=== PATIENT | female | born 1950 | race Caucasian/White ===

== ENCOUNTER 2017-12-17 10:39 | Inpatient (IN) | payer OTHER ==
--- NOTE | 2017-12-17 11:06 | PDOC ---
History of Present Illness - General Chief Complaint: Injury Stated Complaint: FALL Time Seen by Provider: 12/17/17 11:02 - History of Present Illness Initial Comments: 12/17/17 11:05 67 yo F with h/o HLD, depression, Alzheimer dementia, CAD s/p stent placement x 3 ( 2009), A-fib ( not on AC), LLE ATK amputation / PVD (07/2017 at [facility]), RLE bypass graft, Lung mass 07/2017 (non biopsied), BIBA s/p fall. Per patient and patient she was at home ( hotel) in bed and rolled between bed and wall/dresser. Patient states that he was downstairs getting food in lobby for 20 minutes and when he was found patient, she was wedged in between bed, with complaint of head trauma. Denies LOC, head laceration, neck pain. Patient does not ambulate. Denies F/C, RUIZ,vision change, orthopnea, PND, leg swelling/pain, N/V, CP, SOB, abdominal pain, diarrhea, constipation, urinary complaints, weakness, lightheadedness, sensory changes. PMHx: as noted above. Dr. Mancini at [facility] performed ATK amputation. ROS: as noted above SHx: Tobacco cessation. Distant smoking history. Patient wheelchair/bed bound. Denies Etoh, IVDA. Meds: Metoprolol, Lexapro, ASA, Past History - Past Medical History Allergies/Adverse Reactions: Allergies Allergy/AdvReac Type Severity Reaction Status Date / Time No Known Allergies Allergy Verified 12/17/17 11:14 Home Medications: Ambulatory Orders Alprazolam 0.5 mg PO DAILY 12/17/17 Atorvastatin Ca [Lipitor] 40 mg PO HS 12/17/17 Collagenase Clostridium Hist. [Santyl] 15 gm TP DAILY 12/17/17 Escitalopram Oxalate [Lexapro -] 10 mg PO DAILY 12/17/17 Folic Acid 1 mg PO DAILY 12/17/17 Metoprolol Succinate 25 mg PO DAILY 12/17/17 Nystatin Powder [Nystop Topical Powder -] 15 gm TP BID 12/17/17 Review of Systems - Review of Systems Comments:: 12/17/17 11:05 GENERAL/CONSTITUTIONAL: No fever or chills. No weakness. HEAD, EYES, EARS, NOSE AND THROAT: Intermittent ear pain. No change in vision. No discharge. No sore throat. CARDIOVASCULAR: No chest pain or shortness of breath RESPIRATORY: No cough, wheezing, or hemoptysis. GASTROINTESTINAL: No nausea, vomiting, diarrhea or constipation. GENITOURINARY: No dysuria, frequency, or change in urination. MUSCULOSKELETAL: No joint or muscle swelling or pain. No neck or back pain. SKIN: No rash NEUROLOGIC: No headache, vertigo, loss of consciousness, or change in strength/ sensation. ENDOCRINE: No increased thirst. No abnormal weight change HEMATOLOGIC/LYMPHATIC: No anemia, easy bleeding, or history of blood clots. ALLERGIC/IMMUNOLOGIC: No hives or skin allergy. *Physical Exam - Physical Exam Comments: 12/17/17 11:05 GENERAL: Awake, alert, and fully oriented, in no acute distress HEAD: No signs of trauma, normocephalic, atraumatic EYES: PERRLA, EOMI, sclera anicteric, conjunctiva clear ENT: Auricles normal inspection, hearing grossly normal, nares patent, oropharynx clear without exudates. Moist mucosa NECK: Normal ROM, supple, no lymphadenopathy, JVD, or masses LUNGS: No distress, speaks full sentences, clear to auscultation bilaterally HEART: Regular rate and rhythm, normal S1 and S2, no murmurs, rubs or gallops, peripheral pulses normal and equal bilaterally. ABDOMEN: Soft, nontender, normoactive bowel sounds. No guarding, no rebound. No masses EXTREMITIES : Normal inspection, Normal range of motion, no edema. No clubbing or cyanosis. NEUROLOGICAL: Cranial nerves II through XII grossly intact. Normal speech, no focal sensorimotor deficits SKIN: Warm, Dry, normal turgor, no rashes or lesions noted ED Treatment Course - LABORATORY CBC & Chemistry Diagram: 12/17/17 12:00 12/17/17 12:00 Medical Decision Making - Medical Decision Making 12/17/17 12:39 67 yo F with h/o HLD, depression, CAD s/p [facility] 3 ( [facility] ), A-fib ( not on AC), RLE ATK amputation 2/2 PVD (07/2017 at [facility]) , RLE bypass graft, Lung mass 07/2017 (non biopsied), BIBA s/p fall and roll between bed and wall and closed head injury. VSS, AF, A&Ox3. NAD. ED Course: CBC, CMP, Cardiac Profile, PT/INR EKG, CXR 12/17/17 13:50 CXR: Crowding of pulm vessels vs. left parahilar infiltrate. CBC, CMP: Unremarkable UA: Neg Patient stable for d/c with return precautions. 12/17/17 14:16 CTH: Dilated lateral and third ventricles. Dr. Sanford: patient will benefit from shunt. 12/17/17 15:04 Patient admitted to med/surg. Dr. stephen *DC/Admit/Observation/Transfer Diagnosis at time of Disposition: NPH (normal pressure hydrocephalus) Closed head injury Qualifiers: Encounter type: initial encounter Qualified Code(s): S09.90XA - Unspecified injury of head, initial encounter Fall Qualifiers: Encounter type: initial encounter Qualified Code(s): W19.XXXA - Unspecified fall, initial encounter - Discharge Dispostion Disposition: HOME Condition at time of disposition: Stable Decision to Admit order: Yes - Referrals Referrals: Kali Cartagena [Primary Care Provider] - - Patient Instructions Printed Discharge Instructions: How to Prevent Falls, DI for Closed Head Injury Additional Instructions: Please return to the emergency department with any new or worsening symptoms or concerns. Please follow up with your primary care physician within 72 hours. - Post Discharge Activity - Attestations Physician Attestion: 12/17/17 11:06 I attest to the information provided in this note.
[2017-12-17 11:09] VITALS: BMI 27.4
[2017-12-17] MEDS ORDERED: ACETAMINOPHEN 500 MG TABLET (FP) PO ONE (12:04)
[2017-12-17 12:05] LABS: BASO % 1.1 % (0-2.0); EOS % 2.2 % (0-4.5); HEMATOCRIT 41.9 % (32.4-45.2); HEMOGLOBIN 13.6 GM/dL (10.7-15.3); LYMPH % 22.3 % (8-40); MCH 27.6 pg (25.7-33.7); MCHC 32.4 g/dl (32.0-36.0); MEAN CELL VOLUME 85.1 fl (80-96); MEAN PLT VOLUME 8.4 fl (7.5-11.1); MONO % 6.7 % (3.8-10.2); NEUT % 67.7 % (42.8-82.8); PLATELET COUNT 246 K/MM3 (134-434); RBC 4.92 M/mm3 (3.60-5.2); RDW 14.8 % (11.6-15.6); WHITE BLOOD COUNT 8.3 K/mm3 (4.0-10.0)
[2017-12-17 12:17] LABS: INR 1.04 (0.82-1.09); PROTHROMBIN TIME (PATIENT) 11.8 SEC (9.7-13.0)
[2017-12-17 12:31] LABS: ALBUMIN 3.2 g/dl (3.4-5.0); ANION GAP 8 (8-16); BILIRUBIN,TOTAL 0.3 mg/dL (0.2-1.0); BLOOD UREA NITROGEN 17 mg/dL (7-18); CALCIUM 8.6 mg/dL (8.5-10.1); CHLORIDE 106 mmol/L (98-107); CO2 27 mmol/L (21-32); CREATININE 0.5 mg/dL (0.55-1.02); GLUCOSE,RANDOM 82 mg/dL (74-106); POTASSIUM 3.6 mmol/L (3.5-5.1); SGOT/AST 18 U/L (15-37); SGPT/ALT 14 U/L (12-78); SODIUM 141 mmol/L (136-145)
--- NOTE | 2017-12-17 12:32 | PDOC ---
Attending Attestation - HPI HPI: 12/17/17 13:13 The patient is a 67 year old female with a significant PMH of HTN, HLD, depression, Alzheimer dementia, CAD s/p stent placement x 3 ( 2009) , A-fib ( not on AC), LLE ATK amputation / PVD (07/2017 at [facility]) , RLE bypass graft, Lung mass 07/2017 (non biopsied), and early dementia who presents to the emergency department via EMS s/p an unwitnessed fall prior to arrival . the patient reports that she was at home when she attempted to get up and go to the bathroom when she rolled off of the bed and got wedged between her bed and her wall. The patient reports that she impacted her head slightly. She also reports associated soreness secondary to her position. The patient reports that she was stuck in that position for a while before her came inside to assist her. The patient denies any other symptom. She denies any fever , chills, nausea, vomit, diarrhea , constipation or urinary symptoms. She denies any chest pain, shortness of breath, headache and dizziness. The patient denies any other complaints. It is noted that the patient was recently seen at [facility] and has been following with a vascular surgeon at [facility]. Documentation prepared by Sindhu Goodson, acting as medical device assembler for Mary Colby MD. - Physicial Exam PE: 12/17/17 13:54 General: Well appearing, NAD HEENT: NCAT, PERRL, EOMI, moist mucus membranes, no oral lesions. Neck: neck supple, FROM, no JVD, no C-spine tenderness, no back pain Lungs: CTAB, normal and even respirations Heart: RRR, no murmurs Abdomen: soft, NTND, no peritoneal signs Extremities: (+)right BKA. no edema,no ecchymosis, crepitus or injuries on body, pelvis stable, SERRANO x4 Neuro: alert, oriented appropriately; no focal neurologic deficits. Skin: warm and well perfused, cap refill <2 sec, normal color - Medical Decision Making 12/17/17 15:12 2 attempts made to contact PCP( Urvashi Marlow) with no machine pecan picker or call back. <Sindhu Goodson - Last Filed: 12/17/17 15:40> - Resident Resident Name: Miguelito Smith - Medical Decision Making 12/17/17 12:27 67 YOF with h/o HTN, HLD, depression, Alzheimer dementia, CAD s/p stent placement x 3 ( 2009), A-fib ( not on AC), LLE ATK amputation / PVD (07/2017 at [facility]), RLE bypass graft, Lung mass 07/2017 (non biopsied), early dementia BIBA s/p unwitnessed fall from bed. She was found wedged between wall and bed. +head impact and found under the desk drawer; no LOC. no cp or sob, dizziness, RUIZ, weakness or paresthesias. no complaints. previously seen at [facility], followed by vascular surgeon at [facility] vital signs wnl. phys exam as documented. PCP Dr. Claudette Cartagena - attempts made to call , but no answer, so will need admit to hospitalist. DDx. ICH/head injury, infection, UTI, metabolic derangement, electrolyte disturbances, NPH, brain mass, dementia, rib fx/effusion. plan: CT head and C spine r/o injuries, basic labs and UA. no fevers, defer culture. labs are unremarkable, labs and UA neg for infection, CXR unremarkable. C spine neg for fx or injuries. CT head +ventriculomegaly and dilated ventricles, no bleed or mass or CVA/ infarct. given findings and early dementia, urinary incontinence and now unwitnessed falls, considering NPH --> Neurosurgery consultation (Dr. Matta ) and admission warranted for further management and evaluation, as pt is candidate for STILE RIPSAW OPERATOR shunt. admit to medicine, NSG to follow. 12/17/17 15:41 <Mary Colby - Last Filed: 12/17/17 15:41> Heart Score/ECG Review - ECG Intrepretation Rhythm: Regular Rhythm - ST and T Non Specific ST-T Wave changes: Yes Comment:: 12/17/17 14:52 limited by artifact, flattening in inferior leads, no prior - ECG Impressions Comment:: 12/17/17 14:52 nonspecific T wave appearance in inferior leads. no prior. <Mary Colby - Last Filed: 12/17/17 15:41>
[2017-12-17 12:33] LABS: ALK PHOS 83 U/L (45-117)
--- NOTE | 2017-12-17 12:54 | EKG ---
Test Reason : Blood Pressure : / mmHG Vent. Rate : 067 BPM Atrial Rate : 067 BPM P-R Int : 158 ms QRS Dur : 092 ms QT Int : 436 ms P-R-T Axes : 040 -28 006 degrees QTc Int : 460 ms NORMAL SINUS RHYTHM INFERIOR INFARCT , AGE UNDETERMINED ABNORMAL ECG NO PREVIOUS ECGS AVAILABLE Confirmed by MD VINAYAK, CARLITOS ([id number]) on 12/17/2017 12:54:06 PM Referred By: Confirmed By:CARLITOS LICEA MD
[2017-12-17 13:02] LABS: URINE APPEARANCE CLEAR; URINE BILIRUBIN NEGATIVE (<2.0 mg/dL); URINE COLOR LTYELLOW; URINE GLUCOSE (UA) NEGATIVE (NEGATIVE); URINE KETONE NEGATIVE (NEGATIVE); URINE LEUK ESTERASE NEGATIVE (NEGATIVE); URINE NITRITE NEGATIVE (NEGATIVE); URINE PROTEIN NEGATIVE (NEGATIVE); URINE UROBILINOGEN NEGATIVE mg/dL (0.2-1.0)
--- NOTE | 2017-12-17 15:22 | HP ---
CC: Fell out of bed PCP: Non-staff HPI: 67 yo F h/o HTN, HLD, CAD s/p stent x 3, a-fib, PVD s/p LLE ATK amputation and bedbound, lung mass presented to the ED after falling out of the bed in a hotel room. Pt states that her did not witness the fall. She's bed bound and her body tends to tilt to her L side. She fell in tween the wall and the bed when she tried to get up to go to the bathroom. She did not her head. Pt also endorses 3 months of history of worsening memory and 6 months history of urinary incontinence. CT head in ED showed incidental fining of dilated ventricles. Denies chest pain, shortness of breath, n/v, vision change, headache , focal weakness, bowel symptoms. PMH: As above PSH: Stend placement x 3, LLE ATK amputation, RLE bypass graft Social History: 2 pack a day for 30 years but quit many years ago, denies alcohol or drug use Family History: Non-contributory Allergy: NKDA Home Meds: Ambulatory Orders Alprazolam 0.5 mg PO DAILY 12/17/17 Atorvastatin Ca [Lipitor] 40 mg PO HS 12/17/17 Collagenase Clostridium Hist. [Santyl] 15 gm TP DAILY 12/17/17 Escitalopram Oxalate [Lexapro -] 10 mg PO DAILY 12/17/17 Folic Acid 1 mg PO DAILY 12/17/17 Metoprolol Succinate 25 mg PO DAILY 12/17/17 Nystatin Powder [Nystop Topical Powder -] 15 gm TP BID 12/17/17 ROS: Constitutional: +memory change, no fever, no chills, no loss of appetite, no weakness or weight change HEENT: No headache, nasal congestion, sore throat, ear pain, vision change Skin: No rash or lesion Cardiovascular: No chest pain or sob Pulmonary: No cough (dry or productive), colored sputum Endocrine: No polyuria, polydipsia, skin /hair changes, heat/cold intolerance. GI: no active abd pain, nausea , or vomiting : no constipation. +incontinence, No frequency, no urgency, no hematuria. MSK: No joint or muscle pain Psychology: +depression, +anxiety, or insomnia. Physical Examination Last Vital Signs Temp Pulse Resp BP Pulse Ox 99 F 67 18 127/70 95 12/17/17 14:44 12/17/17 14:44 12/17/17 14:44 12/17/17 14:44 12/17/17 14:44 General: AAO x 3. NAD. Eyes: PERRLA ENT: Oropharynx clear with no lesions/erythema. Neck: Supple with no LAD or masses. Lymph Nodes: No cervical or inguinal LAD. Cardiovascular: RRR, S1 and S2 normal, no m/g/r. Lungs: diffuse fine crackles b/l Abdomen: normal bowel sounds. NT.ND. no guarding/rebound Neuro: CNII-XII intact Extremeties: LLE ATK amputation. R lower extremity sensation intact, strength 2/ 5; UE sensatoin intact, strength 4/5 bilaterally. Imaging: CT: dilated lateral and third ventricles, no other acute findings. A/P: 67 yo F h/o dementia, urinary incontinence, LLE ATK amputation and bed bound admitted to med-surg due to normal pressure hydrocephalus. Normal pressure hydrocephalus - Bed elevation 30 degrees - Oral fluid restriction - Neurosurgery consulted and shunt planned CAD s/p sent - Cont. metoprolol and lipitor A-fib - Cont. metoprolol - Not on AC due to ?bleeding Depression - Cont. lexapro HTN - Cont. metoprolol DVT ppx: heparin TID Dispo: cont. to observe on med-surg Jose Sales Medicine PGY3 Pager: [phone] Visit type - Emergency Visit Emergency Visit: Yes ED Registration Date: 12/17/17 Care time: The patient presented to the Emergency Department on the above date and was hospitalized for further evaluation of their emergent condition. - New Patient This patient is new to me today: Yes Date on this admission: 12/17/17 - Critical Care Critical Care patient: No Hospitalist Screening - Colonoscopy Questionnaire Colonoscopy Questionnaire: Colonoscopy Questionnaire - Patient: 50 - 75 years old and never had a screening colonoscopy: Unknown History of colon or rectal polyps, or CA: Unknown History of IBD, Crohn's disease or UC: Unknown History of abdominal radiation therapy as a child: Unknown - Relative: 1 with colon or rectal CA, or polyps at age 60 or younger: Unknown Colon or rectal CA diagnosed at age 45 or younger: Unknown Multiple relatives with colon or rectal CA: Unknown - Outcome: Screening Result: Negative Screen
--- NOTE | 2017-12-17 16:18 | CONSULT ---
Consult - text type - Consultation Consultation Note: NEUROSURGERY CONSULTATION Dang Wray is a 67 year old female who fell out of bed at the hotel where she resides and was wedged between the bed and the wall. She has multiple medical problems and has undergone Right AKA in July 2017. The patient has a history of progressive dementia and cognitive decline as well as urinary incontinence and progressive gait difficulty despite/in excess of that associated with her amputation. The patient presented to the [facility] Emergency Room and Head CT demonstrated significant ventriculomegally with some atrophy. The hydrocephalus appears to be obstructive and the fourth ventricle is not especially large. CSF diversion with HAM SAWYER shunting may be a suitable treatment for her. I described the risks, benefits, and alternatives to HAM SAWYER shunt placement to the patient in great detail. The risks included, but were not limited to: , coma, paralysis, bleeding, infection, leakage of CSF possibly requiring spinal drainage or additional surgery, shunt migration/malfunction/malposition possibly requiring additional surgery, failure to improve, and the need for additional surgery. I explained that underdrainage may not relieve her symptoms and overdrainage may result in subdural hematoma formation which may require craniotomy. I plan to insert a programmable valve set at a high pressure setting and to carefully increase the amount of CSF diversion. All questions were answered. Informed consent was obtained. I offered her the option of seeking another surgeon or another opinion. She asks that we proceed with surgery.
[2017-12-17] MEDS: ALPRAZolam 0.25 MG TABLET PO SCH (18:06)
[2017-12-17] MEDS: FOLIC ACID 1 MG TABLET (FP) PO SCH (18:06)
[2017-12-17] MEDS: metoPROLOL SUCCINATE 25 MG TAB.SR.24H (FP) PO SCH (18:06)
[2017-12-17] MEDS: ESCITALOPRAM OXALATE 10 MG TABLET (FP) PO SCH ×2 (18:06→18:09)
--- NOTE | 2017-12-17 18:35 | PN ---
Teaching Attending Note Name of Resident: Jose Sales ATTENDING PHYSICIAN STATEMENT I saw and evaluated the patient. I reviewed the resident's note and discussed the case with the resident. I agree with the resident's findings and plan as documented with exceptions below. SUBJECTIVE: 67 yof with PMHx of HTN, HLD, CAD s/p PCI, PAD s/p Right AKA about 2 years ago, minimally ambulatory, comes with fall from bed. Reports progressive memory impairment/cognitive decline, urinary incontinence and gait instability more on top of related to her AKA. usually tries to support herself to the left. Is not able to life her left leg in bed but reports able to walk with a cane intermittently at home. 12 point ROS done, neg except above, no LOC, head trauma, dizziness, urinary or bowel incontinence, chest pain, palpitations, around the episode. Confirms as mechanical fall. OBJECTIVE: GENERAL: Awake, alert, and fully oriented, in no acute distress, leaning to her left in bed. HEAD: Normal with no signs of trauma. EYES: Pupils equal, round and reactive to light, extraocular movements intact, sclera anicteric, conjunctiva clear. No lid lag. EARS, NOSE, THROAT: Ears normal, nares patent, oropharynx clear without exudates. Moist mucous membranes. NECK: soft, supple, no JVD LUNGS: limited exam due to her posture and decreased effort, few basilar rales HEART: S1S2 regular ABDOMEN: Soft, nontender, not distended, normoactive bowel sounds, no guarding, no rebound, no masses. MUSCULOSKELETAL: no CVA tenderness Extremities: Right AKA, no swelling/erythema. NEUROLOGICAL: AAOx3, facial symmetry, subtle weakness left hand flask maker, unable to elevate left arm for pronator drift (states is chronic), unable to lift bilateral LE against gravity, able to wiggle toes and power 5/5 at the foot ( states is chronic but re-iterates able to walk to cane), sensation intact and symmetric to light touch PSYCHIATRIC: Cooperative. Good eye contact. Appropriate mood and affect. SKIN: Warm, dry, normal turgor, no rashes or lesions noted, normal capillary refill. Home Medications Medication Instructions Recorded Alprazolam 0.5 mg PO DAILY 12/17/17 Aspirin [Ecotrin] 81 mg PO 12/17/17 Atorvastatin Ca [Lipitor] 40 mg PO HS 12/17/17 Collagenase Clostridium Hist. 15 gm TP DAILY 12/17/17 [Santyl] Escitalopram Oxalate [Lexapro -] 10 mg PO DAILY 12/17/17 Folic Acid 1 mg PO DAILY 12/17/17 Metoprolol Succinate 25 mg PO DAILY 12/17/17 Nystatin Powder [Nystop Topical 15 gm TP BID 12/17/17 Powder -] Active Medications Alprazolam (Xanax -) 0.5 mg PO DAILY [facility] Last Admin: 12/17/17 18:06 Dose: 0.5 mg Atorvastatin Calcium (Lipitor -) 40 mg PO [facility] Escitalopram Oxalate (Lexapro -) 10 mg PO DAILY [facility] Last Admin: 12/17/17 18:09 Dose: Not Given Folic Acid (Folic Acid -) 1 mg PO DAILY [facility] Last Admin: 12/17/17 18:06 Dose: 1 mg Metoprolol Succinate (Toprol Xl -) 25 mg PO DAILY [facility] Last Admin: 12/17/17 18:06 Dose: Not Given Nystatin (Nystop Powder -) 1 applic TP BID [facility] Laboratory Results - last 24 hr 12/17/17 12/17/17 12/17/17 12:00 12:00 12:00 WBC 8.3 RBC 4.92 Hgb 13.6 Hct 41.9 MCV 85.1 MCH 27.6 MCHC 32.4 RDW 14.8 Plt Count 246 MPV 8.4 Absolute Neuts (auto) 5.6 Neutrophils % 67.7 Lymphocytes % 22.3 Monocytes % 6.7 Eosinophils % 2.2 Basophils % 1.1 Nucleated RBC % 0 PT with INR 11.80 INR 1.04 Sodium 141 Potassium 3.6 Chloride 106 Carbon Dioxide 27 Anion Gap 8 BUN 17 Creatinine 0.5 L Creat Clearance w eGFR > 60 Random Glucose 82 Calcium 8.6 Total Bilirubin 0.3 AST 18 ALT 14 Alkaline Phosphatase 83 Creatine Kinase 47 Troponin I < 0.02 Total Protein 7.0 Albumin 3.2 L Urine Color Urine Appearance Urine pH Ur Specific Bonnie Urine Protein Urine Glucose (UA) Urine Ketones Urine Blood Urine Nitrite Urine Bilirubin Urine Urobilinogen Ur Leukocyte Esterase 12/17/17 12:35 WBC RBC Hgb Hct MCV MCH MCHC RDW Plt Count MPV Absolute Neuts (auto) Neutrophils % Lymphocytes % Monocytes % Eosinophils % Basophils % Nucleated RBC % PT with INR INR Sodium Potassium Chloride Carbon Dioxide Anion Gap BUN Creatinine Creat Clearance w eGFR Random Glucose Calcium Total Bilirubin AST ALT Alkaline Phosphatase Creatine Kinase Troponin I Total Protein Albumin Urine Color Ltyellow Urine Appearance Clear Urine pH 5.0 Ur Specific Bonnie 1.015 Urine Protein Negative Urine Glucose (UA) Negative Urine Ketones Negative Urine Blood Negative Urine Nitrite Negative Urine Bilirubin Negative Urine Urobilinogen Negative Ur Leukocyte Esterase Negative CT brain and C-spine results reviewed CXR image and results reviewed EKG NSR QS in III, aVF ASSESSMENT AND PLAN: 67 yof admitted with fall and found with obstructive hydrocephalus -Mechanical fall -Obstructive hydrocephalus with cognitive impairment/intermittent urinary incontinence/gait instability -CAD s/p PCI -PAD s/p Right AKA -HTN -HLD Plan; Neurosurgery input noted, plan for BLANKING PRESS OPERATOR shunt, will follow up. Hold ASA/heparin for now. COntinue home xanax/metoprolol/lexapro. fall precautions. PT eval post surgery. DVTPPX with SCDs for now Dispo pending surgical plans. Plan discussed with patient in detail, all questions answered. Total admit time 55 min.
--- NOTE | 2017-12-17 21:07 | PN ---
Progress Note (short form) - Note Progress Note: Currently planning surgical intervention date. Possibly will go on December 23. No contraindication to subcutaneous heparin for DVT prophylaxis in the interim.
[2017-12-17] MEDS ORDERED: PT OWN MED DRAWER 7, Y5N ONE (21:11)
[2017-12-17] MEDS: ATORVASTATIN CA 40 MG TABLET (FP) PO SCH (21:18)
[2017-12-17] MEDS: NYSTATIN POWDER 100,000 UNITS/GM - 15 GM TOPICAL POWDER TP SCH (21:34)
[2017-12-17] MEDS ORDERED: HEPARIN NA (PORCINE) 5,000 UNITS/ML 1ML VIAL SQ SCH (22:00)
[2017-12-18] MEDS: HEPARIN NA (PORCINE) 5,000 UNITS/ML 1ML VIAL SQ SCH ×2 (06:36→16:16)
[2017-12-18] MEDS ORDERED: DEXTROSE 5%-NORMAL SALINE 1,000 ML IV SCH (07:45)
[2017-12-18 08:33] LABS: INR 1.06 (0.82-1.09)
[2017-12-18] MEDS: ALPRAZolam 0.25 MG TABLET PO SCH (10:15)
[2017-12-18] MEDS: FOLIC ACID 1 MG TABLET (FP) PO SCH (10:15)
[2017-12-18] MEDS: NYSTATIN POWDER 100,000 UNITS/GM - 15 GM TOPICAL POWDER TP SCH (10:15)
[2017-12-18] MEDS: metoPROLOL SUCCINATE 25 MG TAB.SR.24H (FP) PO SCH (10:20)
[2017-12-18] MEDS: ESCITALOPRAM OXALATE 10 MG TABLET (FP) PO SCH (10:20)
--- NOTE | 2017-12-18 10:52 | PN ---
Physical Exam: SUBJECTIVE: Patient seen and examined, no complaints or pain. OBJECTIVE: Vital Signs Period Temp Pulse Resp BP Sys/Chicas Pulse Ox Last 24 Hr 97.6 F-99 F 63-98 18-158 97-129/53-85 93-97 GENERAL:lying in bed leaning to left as prior Abdomen:Soft, NT, D Extremities: no edema Neuro: unchanged Chest; decreased effort, limited by positioning and habitus, ?few left basilar rales Laboratory Results - last 24 hr 12/17/17 12/17/17 12/17/17 12:00 12:00 12:00 WBC 8.3 RBC 4.92 Hgb 13.6 Hct 41.9 MCV 85.1 MCH 27.6 MCHC 32.4 RDW 14.8 Plt Count 246 MPV 8.4 Absolute Neuts (auto) 5.6 Neutrophils % 67.7 Lymphocytes % 22.3 Monocytes % 6.7 Eosinophils % 2.2 Basophils % 1.1 Nucleated RBC % 0 PT with INR 11.80 INR 1.04 Sodium 141 Potassium 3.6 Chloride 106 Carbon Dioxide 27 Anion Gap 8 BUN 17 Creatinine 0.5 L Creat Clearance w eGFR > 60 Random Glucose 82 Calcium 8.6 Total Bilirubin 0.3 AST 18 ALT 14 Alkaline Phosphatase 83 Creatine Kinase 47 Troponin I < 0.02 Total Protein 7.0 Albumin 3.2 L Urine Color Urine Appearance Urine pH Ur Specific [place] Urine Protein Urine Glucose (UA) Urine Ketones Urine Blood Urine Nitrite Urine Bilirubin Urine Urobilinogen Ur Leukocyte Esterase Blood Type Antibody Screen 12/17/17 12/18/17 12/18/17 12:35 06:20 06:20 WBC RBC Hgb Hct MCV MCH MCHC RDW Plt Count MPV Absolute Neuts (auto) Neutrophils % Lymphocytes % Monocytes % Eosinophils % Basophils % Nucleated RBC % PT with INR 12.00 INR 1.06 Sodium Potassium Chloride Carbon Dioxide Anion Gap BUN Creatinine Creat Clearance w eGFR Random Glucose Calcium Total Bilirubin AST ALT Alkaline Phosphatase Creatine Kinase Troponin I Total Protein Albumin Urine Color Ltyellow Urine Appearance Clear Urine pH 5.0 Ur Specific [place] 1.015 Urine Protein Negative Urine Glucose (UA) Negative Urine Ketones Negative Urine Blood Negative Urine Nitrite Negative Urine Bilirubin Negative Urine Urobilinogen Negative Ur Leukocyte Esterase Negative Blood Type O POSITIVE Antibody Screen Negative 12/18/17 08:36 WBC RBC Hgb Hct MCV MCH MCHC RDW Plt Count MPV Absolute Neuts (auto) Neutrophils % Lymphocytes % Monocytes % Eosinophils % Basophils % Nucleated RBC % PT with INR INR Sodium Potassium Chloride Carbon Dioxide Anion Gap BUN Creatinine Creat Clearance w eGFR Random Glucose Calcium Total Bilirubin AST ALT Alkaline Phosphatase Creatine Kinase Troponin I Total Protein Albumin Urine Color Urine Appearance Urine pH Ur Specific [place] Urine Protein Urine Glucose (UA) Urine Ketones Urine Blood Urine Nitrite Urine Bilirubin Urine Urobilinogen Ur Leukocyte Esterase Blood Type O POSITIVE Antibody Screen Active Medications Generic Name Dose Route Start Last Admin Trade Name Evy PRN Reason Stop Dose Admin Alprazolam 0.5 mg 12/17/17 16:15 12/18/17 10:15 Xanax - PO 0.5 mg DAILY NAT Administration Atorvastatin Calcium 40 mg 12/17/17 22:00 12/17/17 21:18 Lipitor - PO 40 mg HS NAT Administration Escitalopram Oxalate 10 mg 12/17/17 16:15 12/18/17 10:20 Lexapro - PO Not Given DAILY NAT Folic Acid 1 mg 12/17/17 16:15 12/18/17 10:15 Folic Acid - PO 1 mg DAILY NAT Administration Heparin Sodium (Porcine) 5,000 unit 12/18/17 06:00 12/18/17 06:36 Heparin - SQ 5,000 unit TID NAT Administration Dextrose/Sodium Chloride 1,000 mls @ 75 mls/hr 12/19/17 00:01 D5-Ns - IV ASDIR NAT Metoprolol Succinate 25 mg 12/17/17 16:15 12/18/17 10:20 Toprol Xl - PO Not Given DAILY NAT Nystatin 1 applic 12/17/17 22:00 12/18/17 10:15 Nystop Powder - TP 1 applic BID NAT Administration ASSESSMENT/PLAN: 67 yof admitted with fall and found with obstructive hydrocephalus -Mechanical fall -Obstructive hydrocephalus with cognitive impairment/intermittent urinary incontinence/gait instability -CAD s/p PCI -PAD s/p Right AKA -HTN -HLD -Anxiety/depression Plan; Discussed with Dr. Matta, possible DIRECTOR DRUG SAFETY shunt in AM. NPO after midnight. Gentle hydration while NPO Hold ASA toprol/xanax/statin/lexapro Plan discussed with patient in detail, all questions answered. Discussed with RN. Visit type - Emergency Visit Emergency Visit: Yes ED Registration Date: 12/17/17 Care time: The patient presented to the Emergency Department on the above date and was hospitalized for further evaluation of their emergent condition. - New Patient This patient is new to me today: No - Critical Care Critical Care patient: No - Discharge Referral Referred to [facility] No
[2017-12-18] MEDS ORDERED: NYSTATIN POWDER 100,000 UNITS/GM - 15 GM TOPICAL POWDER TP PRN (12:16)
[2017-12-18] MEDS: DEXTROSE 5%-NORMAL SALINE 1,000 ML IV SCH (16:02)
[2017-12-18] MEDS: ATORVASTATIN CA 40 MG TABLET (FP) PO SCH ×2 (23:35→23:36)
[2017-12-19] MEDS ORDERED: DEXTROSE 5%-NORMAL SALINE 1,000 ML IV SCH ×2 (00:01→10:29)
[2017-12-19] MEDS ORDERED: ALPRAZolam 0.25 MG TABLET PO PRN (06:00)
[2017-12-19] MEDS: DEXTROSE 5%-NORMAL SALINE 1,000 ML IV SCH (06:13)
[2017-12-19 06:22] LABS: EOS % 4.1 % (0-4.5); HEMATOCRIT 37.3 % (32.4-45.2); HEMOGLOBIN 12.2 GM/dL (10.7-15.3); MCHC 32.7 g/dl (32.0-36.0); MEAN CELL VOLUME 85.7 fl (80-96); MEAN PLT VOLUME 8.4 fl (7.5-11.1); MONO % 7.7 % (3.8-10.2); NEUT % 49.2 % (42.8-82.8); PLATELET COUNT 232 K/MM3 (134-434); RBC 4.35 M/mm3 (3.60-5.2); RDW 14.9 % (11.6-15.6); WHITE BLOOD COUNT 6.6 K/mm3 (4.0-10.0)
[2017-12-19 06:48] LABS: ANION GAP 6 (8-16); BLOOD UREA NITROGEN 13 mg/dL (7-18); CALCIUM 8.4 mg/dL (8.5-10.1); CHLORIDE 111 mmol/L (98-107); CO2 28 mmol/L (21-32); CREATININE 0.4 mg/dL (0.55-1.02); GLUCOSE,RANDOM 94 mg/dL (74-106); SODIUM 145 mmol/L (136-145)
[2017-12-19] MEDS ORDERED: THROMBIN (BOVINE) 5,000 UNIT VIAL TP ONE (07:57)
[2017-12-19] MEDS ORDERED: GENTAMICIN SO4 80 MG/2 ML VIAL ONE (07:57)
[2017-12-19] MEDS ORDERED: BUPIVACAINE HCL/PF 0.5% (5MG/ML) 10 ML VIAL ONE (07:57)
[2017-12-19] MEDS ORDERED: LIDOCAINE 1%/EPI 1:100000 (20 ML MULTI DOSE VIAL) ONE (07:57)
[2017-12-19] MEDS ORDERED: fentaNYL CITRATE 250 MCG/5 ML VIAL ONE (08:03)
[2017-12-19] MEDS ORDERED: ROCURONIUM BROMIDE 50 MG/5 ML VIAL ONE ×2 (08:03→08:54)
[2017-12-19] MEDS ORDERED: MIDAZOLAM HCL 2 MG/2 ML SINGLE DOSE VIAL ONE ×2 (08:03)
[2017-12-19] MEDS ORDERED: LIDOCAINE HCL/PF 2% SDV 5ML VIAL ONE (08:04)
[2017-12-19] MEDS ORDERED: ceFAZolin SODIUM 1 GM VIAL ONE (08:33)
[2017-12-19] MEDS ORDERED: VANCOMYCIN 1,000 MG VIAL (RESTRICTED TO ID ONLY) ONE (08:33)
[2017-12-19] MEDS ORDERED: DEXAMETHASONE SOD PHOSPHATE 4 MG/1 ML VIAL ONE (08:33)
[2017-12-19] MEDS ORDERED: ONDANSETRON 4 MG/2 ML VIAL ONE (08:33)
[2017-12-19] MEDS ORDERED: VANCOMYCIN 1,000 MG VIAL (RESTRICTED TO ID ONLY) IVPB ONE (08:40)
[2017-12-19] MEDS ORDERED: ceFAZolin SODIUM 1 GM VIAL IVPB ONE (08:45)
[2017-12-19] MEDS ORDERED: LIDOCAINE 1%/EPI 1:100000 (20 ML MULTI DOSE VIAL) IJ ONE (08:50)
[2017-12-19] MEDS ORDERED: ePHEDrine SULFATE 50 MG/1 ML AMPULE ONE (09:12)
[2017-12-19] MEDS ORDERED: PROPOFOL 20 ML ONE (09:22)
[2017-12-19] MEDS ORDERED: GLYCOPYRROLATE 0.2 MG/1 ML VIAL ONE (09:50)
[2017-12-19] MEDS ORDERED: NEOSTIGMINE METHYLSULFATE 0.5 MG/ML - 10 ML MDV ONE (09:50)
[2017-12-19] MEDS ORDERED: ONDANSETRON 4 MG/2 ML VIAL IVPUSH PRN (10:18)
--- NOTE | 2017-12-19 10:23 | OP ---
Operative Note - Note: Operative Date: 12/19/17 Pre-Operative Diagnosis: Hydrocephalus Operation: Ventriculoperitoneal shunt placement Post-Operative Diagnosis: Same as Pre-op Anesthesia: General Estimated Blood Loss (mls): 5 Fluid Volume Replaced (mls): 700 Operative Report Dictated: Yes
--- NOTE | 2017-12-19 10:26 | SURG ---
Surgery Title Supervisor Note Title Supervisor: Kenji Nuñez PA-C Date of Service: 12/19/17 Diagnosis: Hydrocephalus Procedure: Ventriculoperitoneal shunt placement I was present for the entirety of the operative procedure. For further detail, please refer to operative report.
[2017-12-19] MEDS: FOLIC ACID 1 MG TABLET (FP) PO SCH (11:53)
[2017-12-19] MEDS: metoPROLOL SUCCINATE 25 MG TAB.SR.24H (FP) PO SCH (11:53)
--- NOTE | 2017-12-19 14:23 | PN ---
Physical Exam: SUBJECTIVE: Patient seen and examined. No acute events overnight. Pt. refused Lipitor and Metoprolol last night. Pt. was in no acute distress Pt. was NPO for BRUSH CUTTER shunt surgery. OBJECTIVE: Vital Signs Period Temp Pulse Resp BP Sys/Chicas Pulse Ox Last 24 Hr 97.6 F-98.4 F 62-80 16-20 95-144/54-70 97-98 GENERAL: The patient is awake, alert, speaking and oriented to person time but NOT to place, in no acute distress. HEAD: Normal with no signs of gross trauma. EYES: Extraocular movements intact, sclera anicteric, conjunctiva clear. No ptosis. NEURO: CN2-9 intact. LUNGS: Breath sounds equal, clear to auscultation bilaterally, no wheezes, no crackles, no accessory muscle use. HEART: Regular rate and rhythm, S1, S2 EXTREMITIES: cool, good dorsal pedal pulse, no edema, 5/5 muscle strength b/l in upper extremities. Pt. has 5/5 productivity engineer strength b/l. Pt was unable to lift lower extremities off of the bed. Pt was able to wiggle toes. NEUROLOGICAL: Cranial nerves II through XII grossly intact. Normal speech, gait not observed. PSYCH: Normal mood, normal affect. Laboratory Results - last 24 hr 12/19/17 12/19/17 06:00 06:00 WBC 6.6 RBC 4.35 Hgb 12.2 Hct 37.3 MCV 85.7 MCH 28.0 MCHC 32.7 RDW 14.9 Plt Count 232 MPV 8.4 Absolute Neuts (auto) 3.2 Neutrophils % 49.2 D Lymphocytes % 38.0 D Monocytes % 7.7 Eosinophils % 4.1 D Basophils % 1.0 Nucleated RBC % 0 Sodium 145 Potassium 4.0 Chloride 111 H Carbon Dioxide 28 Anion Gap 6 L BUN 13 Creatinine 0.4 L Creat Clearance w eGFR > 60 Random Glucose 94 Calcium 8.4 L Phosphorus 3.0 Magnesium 2.0 Active Medications Current Medications Alprazolam (Xanax -) 0.5 mg PO DAILY PRN PRN Reason: ANXIETY Atorvastatin Calcium (Lipitor -) 40 mg PO HS NAT Fentanyl (Sublimaze Injection -) 25 mcg IVPUSH [id number] PRN PRN Reason: PAIN-PACU ORDER X 4 DOSES ONLY Folic Acid (Folic Acid -) 1 mg PO DAILY NAT Sodium Chloride (Normal Saline -) 1,000 mls @ 75 mls/hr IV ASDIR NAT Dextrose/Sodium Chloride (D5-Ns -) 1,000 mls @ 75 mls/hr IV ASDIR NAT Metoprolol Succinate (Toprol Xl -) 25 mg PO DAILY NAT Nystatin (Nystop Powder -) 1 applic TP BID PRN PRN Reason: FOR ITCHING Ondansetron HCl (Zofran Injection) 4 mg IVPUSH Q6H PRN PRN Reason: NAUSEA AND/OR VOMITING ASSESSMENT/PLAN: 67 y.o. F admitted with fall w/ pMHx. of 3 months dementia and 6 months urinary incontinence was found with obstructive hydrocephalus vs. normal pressure hydrocephalus. #Mechanical fall - Pt. did not hit her head -CT scan was negative for hemorrhage, positive for dilated third ventricle #Obstructive vs. normal pressure hydrocephalus -3 month hx. of dementia -6 month hx. of urinary incontinence -gait instability #CAD -s/p PCI x 3 stents #PAD -s/p Right AKA and s/p LLE arterial graft #HTN - controlled w/ metoprolol succinate 25mg (home dose) #HLD -c/w Lipitor home dose #Anxiety/depression -c/w Lexapro home dose #VTE PPx. -SCD Visit type - Emergency Visit Emergency Visit: No - New Patient This patient is new to me today: No - Critical Care Critical Care patient: No - Discharge Referral Referred to [facility] No
[2017-12-19] MEDS: SODIUM CHLORIDE 1,000 ML IV SCH ×2 (15:34→15:55)
[2017-12-19] MEDS ORDERED: PT OWN MED DRAWER 7, Y5N ONE ×2 (15:42→17:17)
[2017-12-19] MEDS: NYSTATIN POWDER 100,000 UNITS/GM - 15 GM TOPICAL POWDER TP PRN (15:48)
[2017-12-19] MEDS ORDERED: SENNOSIDES 8.6MG TABLET (FP) PO PRN (15:51)
--- NOTE | 2017-12-19 16:02 | PN ---
Teaching Attending Note Name of Resident: Harlan Hurley ATTENDING PHYSICIAN STATEMENT I saw and evaluated the patient. I reviewed the resident's note and discussed the case with the resident. I agree with the resident's findings and plan as documented with exceptions below. SUBJECTIVE: patient seen and examined, just came back from surgery, right neck discomfort from the shunt. On questioning, states is constipated. but no nausea/vomiting or abdominal pain. OBJECTIVE: Vital Signs Period Temp Pulse Resp BP Sys/Chicas Pulse Ox Last 24 Hr 97.5 F-98.4 F 62-80 16-20 95-144/54-70 95-98 Intake & Output 12/16/17 12/17/17 12/18/17 12/19/17 23:59 23:59 23:59 23:59 Intake Total 874 388 1873 Output Total 5 Balance 696 349 6643 Weight 165 lb General: sitting in bed in no acute distress neck: right neck shunt palpated Abdomen:soft, NT, positive bowel sounds Extermities: no edema Home Medications Medication Instructions Recorded Alprazolam 0.5 mg PO DAILY 12/17/17 Aspirin [Ecotrin] 81 mg PO DAILY 12/17/17 Collagenase Clostridium Hist. 15 gm TP DAILY 12/17/17 [Santyl] Folic Acid 1 mg PO DAILY 12/17/17 Metoprolol Succinate 25 mg PO DAILY 12/17/17 Nystatin Powder [Nystop Topical 15 gm TP BID 12/17/17 Powder -] Active Medications Alprazolam (Xanax -) 0.5 mg PO DAILY PRN PRN Reason: ANXIETY Docusate Sodium (Colace -) 100 mg PO BID NAT Fentanyl (Sublimaze Injection -) 25 mcg IVPUSH [id number] PRN PRN Reason: PAIN-PACU ORDER X 4 DOSES ONLY Folic Acid (Folic Acid -) 1 mg PO DAILY NAT Sodium Chloride (Normal Saline -) 1,000 mls @ 75 mls/hr IV ASDIR NAT Last Admin: 12/19/17 15:55 Dose: 75 mls/hr Metoprolol Succinate (Toprol Xl -) 25 mg PO DAILY NAT Nystatin (Nystop Powder -) 1 applic TP BID PRN PRN Reason: FOR ITCHING Last Admin: 12/19/17 15:48 Dose: 1 applic Ondansetron HCl (Zofran Injection) 4 mg IVPUSH Q6H PRN PRN Reason: NAUSEA AND/OR VOMITING Polyethylene Glycol (Miralax (For Daily Use) -) 17 gm PO DAILY NAT Senna (Senna -) 2 tab PO HS PRN PRN Reason: CONSTIPATION Laboratory Results - last 24 hr 12/19/17 12/19/17 06:00 06:00 WBC 6.6 RBC 4.35 Hgb 12.2 Hct 37.3 MCV 85.7 MCH 28.0 MCHC 32.7 RDW 14.9 Plt Count 232 MPV 8.4 Absolute Neuts (auto) 3.2 Neutrophils % 49.2 D Lymphocytes % 38.0 D Monocytes % 7.7 Eosinophils % 4.1 D Basophils % 1.0 Nucleated RBC % 0 Sodium 145 Potassium 4.0 Chloride 111 H Carbon Dioxide 28 Anion Gap 6 L BUN 13 Creatinine 0.4 L Creat Clearance w eGFR > 60 Random Glucose 94 Calcium 8.4 L Phosphorus 3.0 Magnesium 2.0 ASSESSMENT AND PLAN: 67 yof admitted with fall and found with obstructive hydrocephalus -Mechanical fall -Obstructive hydrocephalus with cognitive impairment/intermittent urinary incontinence/gait instability -Constipation -CAD s/p PCI -PAD s/p Right AKA -HTN -HLD -Anxiety/depression Plan; s/p ACCESSORIES REPAIRER shunt today, post op care per neurosurgery. Start aggressive bowel regimen, with colace/senna/miralax. Resume heparin per neurosurgery. Patient declines ASA/metoprolol, per and patient, not taking at home. PT eval and dispo planning. Plan discussed with patient in detail, all questions answered.
[2017-12-19] MEDS: POLYETHYLENE GLYCOL 3350 119 GM BTL PO SCH (17:32)
[2017-12-19] MEDS ORDERED: ATORVASTATIN CA 40 MG TABLET (FP) PO SCH (22:00)
[2017-12-19] MEDS: DOCUSATE SODIUM 100 MG CAPSULE (FP) PO SCH (22:09)
[2017-12-19] MEDS: ALPRAZolam 0.25 MG TABLET PO PRN (22:09)
[2017-12-20] MEDS: SODIUM CHLORIDE 1,000 ML IV SCH ×2 (04:55→10:28)
[2017-12-20 08:03] LABS: BASO % 0.2 % (0-2.0); EOS % 0.2 % (0-4.5); HEMATOCRIT 36.1 % (32.4-45.2); HEMOGLOBIN 11.8 GM/dL (10.7-15.3); LYMPH % 17.6 % (8-40); MCH 27.7 pg (25.7-33.7); MCHC 32.6 g/dl (32.0-36.0); MEAN CELL VOLUME 84.8 fl (80-96); MEAN PLT VOLUME 8.8 fl (7.5-11.1); PLATELET COUNT 240 K/MM3 (134-434); RBC 4.25 M/mm3 (3.60-5.2); RDW 14.6 % (11.6-15.6); WHITE BLOOD COUNT 10.9 K/mm3 (4.0-10.0)
[2017-12-20 08:26] LABS: CHLORIDE 108 mmol/L (98-107); POTASSIUM 4.1 mmol/L (3.5-5.1); SODIUM 142 mmol/L (136-145)
[2017-12-20 08:37] LABS: ALBUMIN 2.5 g/dl (3.4-5.0); ALK PHOS 71 U/L (45-117); ANION GAP 8 (8-16); BILIRUBIN,TOTAL 0.3 mg/dL (0.2-1.0); BLOOD UREA NITROGEN 11 mg/dL (7-18); CALCIUM 8.1 mg/dL (8.5-10.1); CO2 26 mmol/L (21-32); CREATININE 0.4 mg/dL (0.55-1.02); GLUCOSE,RANDOM 104 mg/dL (74-106); MAGNESIUM 1.8 mg/dL (1.8-2.4); PHOSPHOROUS 2.7 mg/dL (2.5-4.9); SGOT/AST 15 U/L (15-37); SGPT/ALT 12 U/L (12-78); TOT PROT 5.8 g/dl (6.4-8.2)
[2017-12-20] MEDS ORDERED: PT OWN MED DRAWER 7, Y5N ONE ×2 (10:17→14:46)
[2017-12-20] MEDS: metoPROLOL SUCCINATE 25 MG TAB.SR.24H (FP) PO SCH ×2 (10:24→10:39)
[2017-12-20] MEDS: FOLIC ACID 1 MG TABLET (FP) PO SCH (10:24)
[2017-12-20] MEDS: DOCUSATE SODIUM 100 MG CAPSULE (FP) PO SCH ×2 (10:24→21:39)
[2017-12-20] MEDS: NYSTATIN POWDER 100,000 UNITS/GM - 15 GM TOPICAL POWDER TP PRN (10:28)
[2017-12-20] MEDS: POLYETHYLENE GLYCOL 3350 119 GM BTL PO SCH (10:28)
--- NOTE | 2017-12-20 10:32 | PN ---
Progress Note (short form) - Note Progress Note: POD#1 Pt with her baseline right sided headache. Complains of sore/dry throat. No nausea or emesis. Vital Signs Period Temp Pulse Resp BP Sys/Chicas Pulse Ox Last 24 Hr 97.5 F-99.9 F 64-78 16-20 116-150/60-80 95-97 GEN: Appears comfortable Head: Dressing c/d/i ABD: Dressing c/d/i. Soft, non-tender, non-distended. No ecchymosis. Right lower ext: Right AKA Left lower ext: Dorsi/plantar flexion 5/5 Upper ext: moving all extremities. A/p: 67 yo female s/p WILDERNESS GUIDE shunt for hydrocephalus Pt doing well, D/w Dr. Fowler pt maybe discharged as per the medical team Discharge instuctions/care plan completed
[2017-12-20] MEDS ORDERED: BISACODYL 10 MG SUPP.RECT PR ONE (12:28)
--- NOTE | 2017-12-20 12:57 | PN ---
Progress Note (short form) - Note Progress Note: Anesthesia Post-Op Note Pt s/p WIND DEVELOPMENT DIRECTOR shunt on 12/19/17 under [place]. Pt reports she is feeling relatively well. Tolerating PO. Pt not ambulatory 2/ AKA however did participate with PT. Reports pain well controlled. Vital Signs Temperature 98.5 F 12/20/17 10:00 Pulse Rate 55 L 12/20/17 10:00 Respiratory Rate 18 12/20/17 10:00 Blood Pressure 158/75 12/20/17 10:00 O2 Sat by Pulse Oximetry (%) 93 L 12/20/17 10:00 -Continue post-op care per neurosurgery -Encourage incentive spirometry -Bowel regimen with pain medication
--- NOTE | 2017-12-20 18:14 | PN ---
Teaching Attending Note Name of Resident: Harlan Hurley ATTENDING PHYSICIAN STATEMENT I saw and evaluated the patient. I reviewed the resident's note and discussed the case with the resident. I agree with the resident's findings and plan as documented with exceptions below. SUBJECTIVE: patient seen and examined. no BM yet, no pain or new concerns otherwise. OBJECTIVE: Vital Signs Period Temp Pulse Resp BP Sys/Chicas Pulse Ox Last 24 Hr 98.4 F-99.9 F 55-74 18-20 134-158/62-80 93-95 Intake & Output 12/17/17 12/18/17 12/19/17 12/20/17 23:59 23:59 23:59 23:59 Intake Total 993 848 2330 300 Output Total 5 Balance 880 083 7868 300 Weight 165 lb General: lying in bed in no acute distress Chest; decreased effort Abdomen:Soft, distended, NT throughout, positive bowel sounds neck: right shunt palpated Extremities: no edema Home Medications Medication Instructions Recorded Aspirin [Ecotrin] 81 mg PO DAILY 12/17/17 Collagenase Clostridium Hist. 15 gm TP DAILY 12/17/17 [Santyl] Folic Acid 1 mg PO DAILY 12/17/17 Metoprolol Succinate 12.5 mg PO DAILY 12/17/17 Atorvastatin Ca [Lipitor] 40 mg PO DAILY 12/20/17 Escitalopram Oxalate [Lexapro -] 10 mg PO DAILY 12/20/17 Active Medications Alprazolam (Xanax -) 0.5 mg PO DAILY PRN PRN Reason: ANXIETY Last Admin: 12/19/17 22:09 Dose: 0.5 mg Docusate Sodium (Colace -) 100 mg PO BID [facility] Last Admin: 12/20/17 10:24 Dose: 100 mg Fentanyl (Sublimaze Injection -) 25 mcg IVPUSH [id number] PRN PRN Reason: PAIN-PACU ORDER X 4 DOSES ONLY Folic Acid (Folic Acid -) 1 mg PO DAILY [facility] Last Admin: 12/20/17 10:24 Dose: 1 mg Metoprolol Succinate (Toprol Xl -) 25 mg PO DAILY [facility] Last Admin: 12/20/17 10:39 Dose: 25 mg Nystatin (Nystop Powder -) 1 applic TP BID PRN PRN Reason: FOR ITCHING Last Admin: 12/20/17 10:28 Dose: 1 applic Ondansetron HCl (Zofran Injection) 4 mg IVPUSH Q6H PRN PRN Reason: NAUSEA AND/OR VOMITING Polyethylene Glycol (Miralax (For Daily Use) -) 17 gm PO DAILY NAT Last Admin: 12/20/17 10:28 Dose: 17 gm Senna (Senna -) 2 tab PO HS PRN PRN Reason: CONSTIPATION Laboratory Results - last 24 hr 12/20/17 12/20/17 07:00 07:00 WBC 10.9 H RBC 4.25 Hgb 11.8 Hct 36.1 MCV 84.8 MCH 27.7 MCHC 32.6 RDW 14.6 Plt Count 240 MPV 8.8 Absolute Neuts (auto) 8.1 Neutrophils % 74.0 D Lymphocytes % 17.6 D Monocytes % 8.0 Eosinophils % 0.2 D Basophils % 0.2 Nucleated RBC % 0 Sodium 142 Potassium 4.1 Chloride 108 H Carbon Dioxide 26 Anion Gap 8 BUN 11 Creatinine 0.4 L Creat Clearance w eGFR > 60 Random Glucose 104 Calcium 8.1 L Phosphorus 2.7 Magnesium 1.8 Total Bilirubin 0.3 AST 15 ALT 12 Alkaline Phosphatase 71 D Total Protein 5.8 L Albumin 2.5 L ASSESSMENT AND PLAN: 67 yof admitted with fall and found with obstructive hydrocephalus -Mechanical fall -Obstructive hydrocephalus with cognitive impairment/intermittent urinary incontinence/gait instability s/p SCREEN ROLLER shunt 12/19 -Constipation -CAD s/p PCI -PAD s/p Right AKA -HTN -HLD -Anxiety/depression Plan; Doing well, neurosurgery input noted. D/c planning, PT eval noted. Start aggressive bowel regimen, with colace/senna/miralax. Add dulcolax [place]. Resume heparin per neurosurgery. Patient declines ASA/metoprolol, per and patient, not taking at home. d/c to SNF vs home with services, pending PT recs when arrangements made Plan discussed with patient and at bedside in detail, all questions answered.
--- NOTE | 2017-12-20 20:16 | PN ---
Physical Exam: SUBJECTIVE: Patient seen and examined. Pt. endorsed having restless sleep d/t back pain around sacral ulcer site. Pain was "not unusually bad as it comes and goes." Nurse was notified of the pain and applied topical solution to the area after which pain was resolved. OBJECTIVE: Vital Signs Period Temp Pulse Resp BP Sys/Chicas Pulse Ox Last 24 Hr 98.4 F-99.9 F 55-74 18-20 130-158/62-80 93-95 GENERAL: The patient is awake, alert, and fully oriented, in no acute distress. EYES: PERRL, extraocular movements intact, sclera anicteric, conjunctiva clear. ENT: oropharynx clear without exudates, moist mucous membranes. NECK: Trachea midline, full range of motion, supple. LUNGS: cracklespresent in posterior dependent positions of the lung, no accessory muscle use, exam limited d/t body habitus and surgery. HEART: Regular rate and rhythm, S1, S2 without murmur, rub or gallop. EXTREMITIES: 2+ pulse, cool, well-perfused, no edema. NEUROLOGICAL: Cranial nerves II through XII grossly intact. Normal speech, gait not observed. PSYCH: Normal mood, normal affect. Laboratory Results - last 24 hr 12/20/17 12/20/17 07:00 07:00 WBC 10.9 H RBC 4.25 Hgb 11.8 Hct 36.1 MCV 84.8 MCH 27.7 MCHC 32.6 RDW 14.6 Plt Count 240 MPV 8.8 Absolute Neuts (auto) 8.1 Neutrophils % 74.0 D Lymphocytes % 17.6 D Monocytes % 8.0 Eosinophils % 0.2 D Basophils % 0.2 Nucleated RBC % 0 Sodium 142 Potassium 4.1 Chloride 108 H Carbon Dioxide 26 Anion Gap 8 BUN 11 Creatinine 0.4 L Creat Clearance w eGFR > 60 Random Glucose 104 Calcium 8.1 L Phosphorus 2.7 Magnesium 1.8 Total Bilirubin 0.3 AST 15 ALT 12 Alkaline Phosphatase 71 D Total Protein 5.8 L Albumin 2.5 L Active Medications Current Medications Alprazolam (Xanax -) 0.5 mg PO DAILY PRN PRN Reason: ANXIETY Last Admin: 12/19/17 22:09 Dose: 0.5 mg Docusate Sodium (Colace -) 100 mg PO BID NAT Last Admin: 12/20/17 10:24 Dose: 100 mg Fentanyl (Sublimaze Injection -) 25 mcg IVPUSH [id number] PRN PRN Reason: PAIN-PACU ORDER X 4 DOSES ONLY Folic Acid (Folic Acid -) 1 mg PO DAILY [facility] Last Admin: 12/20/17 10:24 Dose: 1 mg Metoprolol Succinate (Toprol Xl -) 25 mg PO DAILY [facility] Last Admin: 12/20/17 10:39 Dose: 25 mg Nystatin (Nystop Powder -) 1 applic TP BID PRN PRN Reason: FOR ITCHING Last Admin: 12/20/17 10:28 Dose: 1 applic Ondansetron HCl (Zofran Injection) 4 mg IVPUSH Q6H PRN PRN Reason: NAUSEA AND/OR VOMITING Polyethylene Glycol (Miralax (For Daily Use) -) 17 gm PO DAILY [facility] Last Admin: 12/20/17 10:28 Dose: 17 gm Senna (Senna -) 2 tab PO HS PRN PRN Reason: CONSTIPATION ASSESSMENT/PLAN: 67 y.o. F admitted with fall w/ pMHx. of 3 months dementia and 6 months urinary incontinence was found with obstructive hydrocephalus vs. normal pressure hydrocephalus. #Mechanical fall - Pt. did not hit her head -CT scan was negative for hemorrhage, positive for dilated third ventricle -d/c fluids as patient was clinically a little wet. #Obstructive vs. normal pressure hydrocephalus -3 month hx. of dementia -6 month hx. of urinary incontinence -gait instability - UA negative - BRAILLE AND TALKING BOOKS CLERK shunt placed - consider incentive spirometry #Constipation? -has not had a BM: consider aggressive bowel regimen w/ miralax and suppository if neccesary #CAD -s/p PCI x 3 stents #PAD -s/p Right AKA and s/p LLE arterial graft #HTN - controlled w/ metoprolol succinate 25mg (home dose) #HLD -c/w Lipitor home dose #Anxiety/depression -c/w Lexapro home dose #VTE PPx. -SCD #Dispo -SNF? Visit type - Emergency Visit Emergency Visit: No - New Patient This patient is new to me today: No - Critical Care Critical Care patient: No - Discharge Referral Referred to [facility] No
[2017-12-21 07:47] LABS: BASO % 0.7 % (0-2.0); EOS % 2.9 % (0-4.5); HEMATOCRIT 36.2 % (32.4-45.2); HEMOGLOBIN 12.2 GM/dL (10.7-15.3); LYMPH % 29.1 % (8-40); MCH 28.2 pg (25.7-33.7); MCHC 33.6 g/dl (32.0-36.0); MEAN CELL VOLUME 83.8 fl (80-96); MEAN PLT VOLUME 8.5 fl (7.5-11.1); MONO % 8.5 % (3.8-10.2); NEUT % 58.8 % (42.8-82.8); PLATELET COUNT 223 K/MM3 (134-434); RBC 4.32 M/mm3 (3.60-5.2); RDW 14.4 % (11.6-15.6); WHITE BLOOD COUNT 8.6 K/mm3 (4.0-10.0)
[2017-12-21 08:26] LABS: CHLORIDE 108 mmol/L (98-107); POTASSIUM 3.8 mmol/L (3.5-5.1); SODIUM 142 mmol/L (136-145)
[2017-12-21 08:33] LABS: ALBUMIN 2.6 g/dl (3.4-5.0); ALK PHOS 73 U/L (45-117); ANION GAP 7 (8-16); BILIRUBIN,TOTAL 0.6 mg/dL (0.2-1.0); BLOOD UREA NITROGEN 7 mg/dL (7-18); CO2 27 mmol/L (21-32); CREATININE 0.3 mg/dL (0.55-1.02); GLUCOSE,RANDOM 84 mg/dL (74-106); MAGNESIUM 1.7 mg/dL (1.8-2.4); PHOSPHOROUS 2.5 mg/dL (2.5-4.9); SGOT/AST 16 U/L (15-37); SGPT/ALT 10 U/L (12-78); TOT PROT 5.6 g/dl (6.4-8.2)
--- NOTE | 2017-12-21 09:39 | PN ---
Physical Exam: SUBJECTIVE: Patient seen and examined at bedside. No complaint and no acute event per nurse. OBJECTIVE: Vital Signs Period Temp Pulse Resp BP Sys/Chicas Pulse Ox Last 24 Hr 98.5 F-99.5 F 55-77 18-18 108-158/57-75 93 General: AAO x 3. NAD. Tilted to the L resting comfortably in bed. Cardiovascular: RRR, S1 and S2 normal, no m/g/r. Lungs: CTAB Abdomen: normal bowel sounds. NT.ND. no guarding/rebound Extremeties: LLE ATK amputation. R lower extremity sensation intact, strength 2/ 5; UE sensatoin intact, strength 4/5 bilaterally. Laboratory Results - last 24 hr 12/21/17 12/21/17 06:20 06:20 WBC 8.6 RBC 4.32 Hgb 12.2 Hct 36.2 MCV 83.8 MCH 28.2 MCHC 33.6 RDW 14.4 Plt Count 223 MPV 8.5 Absolute Neuts (auto) 5.0 Neutrophils % 58.8 D Lymphocytes % 29.1 D Monocytes % 8.5 Eosinophils % 2.9 D Basophils % 0.7 D Nucleated RBC % 0 Sodium 142 Potassium 3.8 Chloride 108 H Carbon Dioxide 27 Anion Gap 7 L BUN 7 Creatinine 0.3 L Creat Clearance w eGFR > 60 Random Glucose 84 Calcium 8.0 L Phosphorus 2.5 Magnesium 1.7 L Total Bilirubin 0.6 AST 16 ALT 10 L Alkaline Phosphatase 73 Total Protein 5.6 L Albumin 2.6 L Active Medications Generic Name Dose Route Start Last Admin Trade Name Freq PRN Reason Stop Dose Admin Alprazolam 0.5 mg 12/19/17 10:29 12/19/17 22:09 Xanax - PO 0.5 mg DAILY PRN Administration ANXIETY Docusate Sodium 100 mg 12/19/17 22:00 12/20/17 21:39 Colace - PO 100 mg BID NAT Administration Fentanyl 25 mcg 12/19/17 10:18 Sublimaze Injection - IVPUSH [id number] PRN PAIN-PACU ORDER X 4 DOSES ONLY Folic Acid 1 mg 12/20/17 10:00 12/20/17 10:24 Folic Acid - PO 1 mg DAILY NAT Administration Metoprolol Succinate 25 mg 12/20/17 10:00 07/06/18 10:39 Toprol Xl - PO 25 mg DAILY NAT Administration Nystatin 1 applic 12/19/17 10:29 12/20/17 10:28 Nystop Powder - TP 1 applic BID PRN Administration FOR ITCHING Ondansetron HCl 4 mg 12/19/17 10:18 Zofran Injection IVPUSH Q6H PRN NAUSEA AND/OR VOMITING Polyethylene Glycol 17 gm 12/19/17 16:00 12/20/17 10:28 Miralax (For Daily Use) - PO 17 gm DAILY NAT Administration Senna 2 tab 12/19/17 15:51 Senna - PO HS PRN CONSTIPATION ASSESSMENT/PLAN: 67 yo F h/o dementia, urinary incontinence, LLE ATK amputation and bed bound admitted to med-surg due to normal pressure hydrocephalus. Normal pressure hydrocephalus - s/p RELIABILITY TECHNICIAN shunt - incentive spirometer - Bed elevation 30 degrees - cont. bowel regiment CAD s/p sent - Cont. metoprolol and lipitor A-fib - Cont. metoprolol - Not on AC due to ?bleeding Depression - Cont. lexapro HTN - Cont. metoprolol DVT ppx: heparin TID Dispo: d/c back to pt's residence. 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 [employer] PGY3 Pager: [phone] Visit type - Emergency Visit Emergency Visit: No - New Patient This patient is new to me today: No - Critical Care Critical Care patient: No
[2017-12-21] MEDS ORDERED: ASPIRIN 325 MG TABLET PO SCH (10:00)
[2017-12-21] MEDS ORDERED: MAGNESIUM SULF 50% (8.12 MEQ/2 ML-1 GM VIAL) IVPB ONE (10:00)
--- NOTE | 2017-12-21 10:02 | PN ---
Progress Note (short form) - Note Progress Note: Patient is doing well after surgery and is clear for discharge from Neurosurgery Standpoint. Skin clip removal in 2 weeks.
[2017-12-21] MEDS ORDERED: PT OWN MED DRAWER 7, Y5N ONE (10:49)
[2017-12-21] MEDS: FOLIC ACID 1 MG TABLET (FP) PO SCH (11:16)
[2017-12-21] MEDS: metoPROLOL SUCCINATE 25 MG TAB.SR.24H (FP) PO SCH (11:16)
[2017-12-21] MEDS: DOCUSATE SODIUM 100 MG CAPSULE (FP) PO SCH (11:16)
[2017-12-21] MEDS: POLYETHYLENE GLYCOL 3350 119 GM BTL PO SCH (11:17)
[2017-12-21] MEDS: ALPRAZolam 0.25 MG TABLET PO PRN (11:19)
--- NOTE | 2017-12-21 12:00 | DS ---
Physical Exam: SUBJECTIVE: Patient seen and examined OBJECTIVE: Vital Signs Period Temp Pulse Resp BP Sys/Chicas Pulse Ox Last 24 Hr 97.7 F-99.5 F 65-77 18-18 108-134/52-67 PHYSICAL EXAM GENERAL: The patient is awake, alert, and fully oriented, in no acute distress. HEAD: Normal with no signs of trauma. EYES: PERRL, extraocular movements intact, sclera anicteric, conjunctiva clear. ENT: Ears normal, nares patent, oropharynx clear without exudates, moist mucous membranes. NECK: Trachea midline, full range of motion, supple. LUNGS: Breath sounds equal, clear to auscultation bilaterally, no wheezes, no crackles, no accessory muscle use. HEART: Regular rate and rhythm, S1, S2 without murmur, rub or gallop. ABDOMEN: Soft, nontender, nondistended, normoactive bowel sounds, no guarding, no rebound, no hepatosplenomegaly, no masses. EXTREMITIES: 2+ pulses, warm, well-perfused, no edema. NEUROLOGICAL: Cranial nerves II through XII grossly intact. Normal speech, gait not observed. PSYCH: Normal mood, normal affect. SKIN: Warm, dry, normal turgor, no rashes or lesions noted. LABS Laboratory Results - last 24 hr 12/21/17 12/21/17 06:20 06:20 WBC 8.6 RBC 4.32 Hgb 12.2 Hct 36.2 MCV 83.8 MCH 28.2 MCHC 33.6 RDW 14.4 Plt Count 223 MPV 8.5 Absolute Neuts (auto) 5.0 Neutrophils % 58.8 D Lymphocytes % 29.1 D Monocytes % 8.5 Eosinophils % 2.9 D Basophils % 0.7 D Nucleated RBC % 0 Sodium 142 Potassium 3.8 Chloride 108 H Carbon Dioxide 27 Anion Gap 7 L BUN 7 Creatinine 0.3 L Creat Clearance w eGFR > 60 Random Glucose 84 Calcium 8.0 L Phosphorus 2.5 Magnesium 1.7 L Total Bilirubin 0.6 AST 16 ALT 10 L Alkaline Phosphatase 73 Total Protein 5.6 L Albumin 2.6 L HOSPITAL COURSE: Date of Admission:12/17/17 Date of Discharge: 12/21/17 Minutes to complete discharge: 40 Discharge Summary Reason For Visit: NORMAL PRESSURE HYDROCEPHALUS,FALL Hospital Course: Patient seen by neurosurgery. She had a VEHICLE WINDOW TINTER shunt placed with no complications. She was maintained on aggressive bowel regimen. 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 She was cleared by neurosurgeon for discharge with outpatient follow up for staple removal. Plan has been discussed with patient and . Condition: Stable - Instructions Diet, Activity, Other Instructions: Please return to the emergency department with any new or worsening symptoms or concerns. Please follow up with your primary care physician within 72 hours. Post Operative Instructions Wound Care Keep your incision clean, dry and covered at all times. Apply an occlusive dressing (Saran wrap or Tegaderm) to your abdomen when bathing to avoid getting your incision wet. Do not submerge incision or apply ointments or creams. Keep your head dressing clean/covered at all times. If the dressing comes off/please replace the dressing. Take tylenol for pain as needed. The sofia will be removed in the office post-op. Call Dr Espinoza for any of the following: Severe pain not relieved by medication Fever of 101 or higher Excessive bleeding or drainage on dressing Any chest pain or shortness of breath, seek Emergency Care. Call the office to confirm a post-operative appointment for January 08/Saturday Faraz Matta MD [facility] [place] [address] Referrals: Faraz Matta MD, FAANS [Staff Physician] - 2 Weeks Kali Cartagena [Primary Care Provider] - 2 Weeks Disposition: HOME - Home Medications Comprehensive Discharge Medication List: Ambulatory Orders Aspirin [Ecotrin] 81 mg PO DAILY 12/17/17 Collagenase Clostridium Hist. [Santyl] 15 gm TP DAILY 12/17/17 Folic Acid 1 mg PO DAILY 12/17/17 Metoprolol Succinate 12.5 mg PO DAILY 12/17/17 Atorvastatin Ca [Lipitor] 40 mg PO DAILY 12/20/17 Escitalopram Oxalate [Lexapro -] 10 mg PO DAILY 12/20/17 This patient is new to me today: No Emergency Visit: Yes ED Registration Date: 12/17/17 Care time: The patient presented to the Emergency Department on the above date and was hospitalized for further evaluation of their emergent condition. Critical Care patient: No - Discharge Referral Referred to [facility] No
[2017-12-21 19:20] VITALS: BP 102/57; PULSE 74; TEMP 98.1
== END 2017-12-21 19:29 | disposition home or self-care (01) | DRG 33 ==
LOC: JER 10:39 → JERBED 14:48 → J5S 16:33
PROVIDERS: ADMIT Hospitalist; ATTEND Hospitalist
PROC: 00160J6 Bypass Cerebral Ventricle to Peritoneal Cavity with Synthetic Substitute, Open Approach (ICD-10-PCS; principal; 2017-12-19 08:00)
DX: G91.1 Obstructive hydrocephalus (principal); I25.10 Atherosclerotic heart disease of native coronary artery without angina pectoris; E78.5 Hyperlipidemia, unspecified; I10 Essential (primary) hypertension; I48.91 Unspecified atrial fibrillation; F41.8 Other specified anxiety disorders; G91.0 Communicating hydrocephalus; I73.9 Peripheral vascular disease, unspecified; G31.89 Other specified degenerative diseases of nervous system; G93.89 Other specified disorders of brain; F03.90 Unspecified dementia, unspecified severity, without behavioral disturbance, psychotic disturbance, mood disturbance, and anxiety; R26.9 Unspecified abnormalities of gait and mobility; R32 Unspecified urinary incontinence; W06.XXXA Fall from bed, initial encounter; K59.00 Constipation, unspecified; L89.212 Pressure ulcer of right hip, stage 2; Z89.611 Acquired absence of right leg above knee; Z95.5 Presence of coronary angioplasty implant and graft; Z89.612 Acquired absence of left leg above knee; Z87.891 Personal history of nicotine dependence; Z74.01 Bed confinement status; Y92.89 Other specified places as the place of occurrence of the external cause
CPT/HCPCS: 36415; 70450-TC; 71045-TC-FY; 72125-TC; 74190-TC-FY; 80048; 80053; 81003; 82550; 83735; 84100; 84484; 85025; 85610; 86850; 86900; 86901; 87086; 93005; 93010; 94010; 94760; 97161-GP; 99282-25; J1644; J7030